=== PATIENT | male | born 1970 | race Caucasian/White ===

== ENCOUNTER 2022-06-14 13:57 | Emergency (ER) | payer SELFPAY ==
[2022-06-14 14:07] VITALS: BP 167/111; PULSE 86; RESP 17; TEMP 36.7; O2SAT 98; BMI 20.9
[2022-06-14 14:20] LABS: Basophils # 0.1 10^3/uL (0.0-0.1); Basophils % 0.7 %; Eosinophils # 0.3 10^3/uL (0.0-0.8); Eosinophils % 3.2 %; Hematocrit 44.1 % (42.0-52.0); Hemoglobin 15.1 g/dL (11.7-16.6); Lymphocytes # 2.3 10^3/uL (0.8-4.8); Lymphocytes % 23.2 %; Mean Corpuscular HGB Conc 34.2 g/dL (30.0-36.0); Mean Corpuscular Hemoglobin 31.5 pg (28.0-34.0); Mean Corpuscular Volume 91.9 fl (80-94); Mean Platelet Volume 8.8 fL (7.4-10.4); Monocytes # 0.7 10^3/uL (0.2-0.9); Neutrophils # 6.51 10^3/uL (1.8-7.7); Neutrophils % 65.6 %; Nucleated Red Blood Cells % 0 %; Platelet Count 324 10^3/cmm (130-400); Red Cell Distribution Width 13.8 % (12.1-15.1); White Blood Count 9.9 10^3/uL (4.0-10.0)
[2022-06-14 14:50] LABS: Alanine Aminotransferase 10 U/L (0-41); Albumin Level 3.9 g/dL (3.5-5.2); Alkaline Phosphatase 126 U/L (40-130); Anion Gap 16.3 (5-19); Aspartate Amino Transferase 12 U/L (0-40); Blood Urea Nitrogen 6 mg/dL (6-20); Calcium 8.9 mg/dL (8.5-10.5); Carbon Dioxide 23 mmol/L (22-29); Chloride 104 mmol/L (98-107); Globulin 3.3 g/dL (1.3-4.6); Glomerular Filtration Rate 140.9 mL/min (90-130); Glucose 84 mg/dL (65-115); Lipase 24 U/L (13-60); Osmolality Calculated 287 mOsm/kg (285-295); Potassium 3.3 mmol/L (3.5-5.1); Sodium 140 mmol/L (136-145); Total Bilirubin 0.2 mg/dL (0.15-1.2); Total Protein 7.2 g/dL (6.6-8.7)
--- NOTE | 2022-06-14 15:25 | ED_ITS ---
HPI - Abdominal Pain General: Chief Complaint: Abdominal Pain Stated Complaint: Abd pain, Swelling Time Seen by Provider: 06/14/22 14:31 Source: patient Mode of arrival: ambulatory Limitations: no limitations History of Present Illness: 51-year-old male who has had a right inguinal hernia he states for quite some time he is never seen anyone for his hernia. He states he had to crawl to the house last night states has been having worsening pain in his hernia he denies any vomiting he rates his pain a 7 out of 10 its worse with movement improved with rest. Denies any fevers. Associated Symptoms: Denies chills, dysuria and fever(s) Review of Systems Const: Denies: fever(s), chills, body aches or change in appetite Eyes: Denies: blurry vision or eye discomfort ENMT: Denies: throat pain or dental pain Card: Denies: chest pain Resp: Denies: dyspnea GI: Reports: abdominal pain : Denies: dysuria Musc: Denies: neck pain or back pain Skin/Breast: Denies: rash Neuro: Denies: headache(s) Psych: Denies: depression [place]/Lymph: Denies: easy bruising All/Imm: Denies: urticaria PFSH ED 2 PFSH: Medical History (Updated 06/14/22 @ 16:00 by Evon Billingsley MD) No pertinent past medical history Social History (Updated 06/14/22 @ 15:26 by Evon Billingsley MD) Substance/Drug Use: never Physical Exam Const: COMMON NORMALS: no acute distress, patient oriented x3 and healthy appearing HENMT: COMMON NORMALS: normocephalic and atraumatic HEAD & SCALP: normocephalic and atraumatic Eye: COMMON NORMALS: Equal, round and reactive pupils present and EOMs intact bilaterally PUPIL: Yes Equal, round and reactive pupils present Neck/C-Spine: COMMON NORMALS: full ROM and supple Chest: COMMONS NORMALS: normal inspection of the chest and normal palpation of entire chest wall Resp: COMMON NORMALS: normal respiratory effort, No retractions, No use of accessory muscles and clear to auscultation bilaterally AUSCULTATION: clear to auscultation bilaterally Cardio: COMMON NORMALS: regular rate, regular rhythm and No murmurs present (Cardio) RATE: regular rate RHYTHM: regular rhythm GI: COMMON NORMALS: Normal to inspection, nondistended, normoactive bowel sounds present, Soft to palpation and non-tender PALPATION: Yes Soft to palpation OTHER: Right inguinal hernia noted Extremity: COMMON NORMALS: normal to inspection and full ROM Neuro: COMMON NORMALS: patient oriented x3, moves all extremities and no focal motor deficits Psych: COMMON NORMALS: mental status grossly normal, Normal thought process present and cooperative THOUGHT PROCESS: Normal thought process present Skin: COMMON NORMALS: no rashes or lesions noted and no wounds GENERAL SKIN EXAM: no rashes or lesions noted Course Vital Signs: Vital signs: Vital Signs Temperature 98.0 F 06/14/22 14:07 Pulse Rate 86 06/14/22 14:07 Respiratory Rate 16 06/14/22 15:46 Blood Pressure 167/111 06/14/22 14:07 Pulse Oximetry 98 06/14/22 15:46 Oxygen Delivery Me thod 06/14/22 14:07 MDM - Abdominal Pain Medical Decision Making Patient presents here with a right inguinal hernia I was able to reduce it at bedside his pain is resolved currently his abdominal exam is benign white count is normal likely having pain from the hernia we will get him follow-up with the surgeon he is return to the ER if worsening he understands agrees to plan. Lab Data 06/14/22 14:10 06/14/22 14:10 Labs/Radiology: Laboratory Results WBC 9.9 10^3/uL (4.0-10.0) 06/14/22 14:10 RBC 4.80 10^6/uL (4.1-5.3) 06/14/22 14:10 Hgb 15.1 g/dL (11.7-16.6) 06/14/22 14:10 Hct 44.1 % (42.0-52.0) 06/14/22 14:10 MCV 91.9 fl (80-94) 06/14/22 14:10 MCH 31.5 pg (28.0-34.0) 06/14/22 14:10 MCHC 34.2 g/dL (30.0-36.0) 06/14/22 14:10 RDW 13.8 % (12.1-15.1) 06/14/22 14:10 Plt Count 324 10^3/cmm (130-400) 06/14/22 14:10 MPV 8.8 fL (7.4-10.4) 06/14/22 14:10 Neut % (Auto) 65.6 % 06/14/22 14:10 Lymph % (Auto) 23.2 % 06/14/22 14:10 [place] % (Auto) 7.0 % 06/14/22 14:10 Eos % (Auto) 3.2 % 06/14/22 14:10 Baso % (Auto) 0.7 % 06/14/22 14:10 Neut # (Auto) 6.51 10^3/uL (1.8-7.7) 06/14/22 14:10 Lymph # (Auto) 2.3 10^3/uL (0.8-4.8) 06/14/22 14:10 [place] # (Auto) 0.7 10^3/uL (0.2-0.9) 06/14/22 14:10 Eos # (Auto) 0.3 10^3/uL (0.0-0.8) 06/14/22 14:10 Baso # (Auto) 0.1 10^3/uL (0.0-0.1) 06/14/22 14:10 Nucleated RBC % (auto) 0 % 06/14/22 14:10 Nucleated RBCs # 0.0 /100WBC 06/14/22 14:10 Sodium 140 mmol/L (136-145) 06/14/22 14:10 Potassium 3.3 mmol/L (3.5-5.1) L 06/14/22 14:10 Chloride 104 mmol/L (98-107) 06/14/22 14:10 Carbon Dioxide 23 mmol/L (22-29) 06/14/22 14:10 Anion Gap 16.3 (5-19) 06/14/22 14:10 BUN 6 mg/dL (6-20) 06/14/22 14:10 Creatinine 0.6 mg/dL (0.7-1.2) L 06/14/22 14:10 GFR Calculation 140.9 mL/min (90-130) H 06/14/22 14:10 Glucose 84 mg/dL (65-115) 06/14/22 14:10 Calculated Osmolality 287 mOsm/kg (285-295) 06/14/22 14:10 Calcium 8.9 mg/dL (8.5-10.5) 06/14/22 14:10 Total Bilirubin 0.2 mg/dL (0.15-1.2) 06/14/22 14:10 AST 12 U/L (0-40) 06/14/22 14:10 ALT 10 U/L (0-41) 06/14/22 14:10 Alkaline Phosphatase 126 U/L (40-130) 06/14/22 14:10 Total Protein 7.2 g/dL (6.6-8.7) 06/14/22 14:10 Albumin 3.9 g/dL (3.5-5.2) 06/14/22 14:10 Globulin 3.3 g/dL (1.3-4.6) 06/14/22 14:10 Lipase 24 U/L (13-60) 06/14/22 14:10 Discharge Plan Discharge Patient Disposition: Home Clinical Impression: Hernia, inguinal, right Prescriptions: New hydrocodone-acetaminophen 5-325 mg tablet 1 tab PO Q6H PRN (Reason: pain) Qty: 14 0RF ondansetron 4 mg tablet,disintegrating 4 mg PO Q6H PRN (Reason: nausea and vomiting) Qty: 14 0RF Discharge Orders: Discharge ED (Routine); Ordered 06/14/22 Ordered By: Evon Billingsley Referrals: Cristian Rico DO [Physician] - 1-3 days Discharge Diet: Advance as tolerated Discharge Activity: Resume usual activity Patient Instructions: Inguinal Hernia (ED), Opioid Safety Coding Level of Care Code ED [employer] Room Supervisor for Braulio Cook
[2022-06-14 15:46] VITALS: RESP 16; O2SAT 98
[2022-06-14] MEDS: LORazepam 2 mg/mL INJ 1 mL 1 MG IVP (15:46)
[2022-06-14] MEDS: HYDROmorphone 1 mg/mL INJ 1 mL IVP (15:46)
[2022-06-14] MEDS: ondansetron 2 mg/ML SDV 2 mL 4 MG IVP (15:46)
[2022-06-14 16:00] VITALS: BP 153/99; PULSE 74; O2SAT 92
[2022-06-14 16:30] VITALS: BP 130/87; PULSE 69; O2SAT 95
--- NOTE | 2022-06-15 10:08 | DCPLANNER ---
Addendum entered by Sofia Kimble 06/17/22 08:00: camp manager received the following message from general surgery regarding follow up appointment. Patient called me back.. We talked about him not having any insurance, & he agreed to talk to FA before scheduling. Original Note: camp manager had message to schedule a follow up appointment for patient with general surgery. camp manager sent patients information to the front office staff at general surgery. Patients information will be printed and reviewed. Clinic will call patient with appointment information.
== END 2022-06-14 17:06 | disposition home or self-care (01) ==
PROVIDERS: Emergency Provider Emergency Medicine
DX: K40.90 Unilateral inguinal hernia, without obstruction or gangrene, not specified as recurrent (principal)
CPT/HCPCS: 36415; 80053; 83690; 85025; 96374; 96375; 99284; J1170; J2060; J2405